=== PATIENT | male | born 1970 | race Caucasian/White ===

== ENCOUNTER → 2017-10-31 | Outpatient (CLI) | payer SELFPAY ==
--- NOTE | 2017-10-31 14:04 | Diagnostic Imaging Report ---
PROCEDURE: CT abdomen without contrast. TECHNIQUE: Multiple contiguous axial images were obtained through the abdomen without the use of intravenous contrast. INDICATION: Hepatitis. There are no previous CT examinations available for comparison. FINDINGS: The gallbladder ultrasound exam performed on 09/29/15 was limited as the left lobe of the liver, the common bile duct and pancreas were not well visualized. There did appear to be an ill-defined 9.4 cm lobulated somewhat irregular hypoechoic area in the posterior aspect of the right lobe of the liver. The possibility that this was related to normal parenchyma spared from fatty metamorphosis was raised. On this exam, the liver seems homogeneous and not enlarged. There is no focal mass identified. The liver seems of normal density and there is no clear evidence for fatty metamorphosis. As noted on the ultrasound exam, there is cholelithiasis but there is no sign of acute cholecystitis. The common bile duct and proximal biliary tree are not dilated. The spleen, pancreas, adrenals, kidneys, aorta and inferior vena cava show no sign of an acute abnormality. The stomach is partially filled with fluid and consequently difficult to assess. The lung bases are clear. The osseous structures are intact. IMPRESSION: 1. There is no discrete mass involving the right lobe of the liver to correspond to finding of the ultrasound exam. If clinical concern regarding an underlying abnormality persists and if further imaging is desired, then either a followup CT exam with intravenous contrast or MRI would be recommended. 2. There is cholelithiasis without evidence for acute cholecystitis. Dictated by: Dictated on workstation # [id number]
== END ==
LOC: RAD 11:04
PROVIDERS: ATTEND Pediatrics
DX: B18.1 Chronic viral hepatitis B without delta-agent (principal); K80.20 Calculus of gallbladder without cholecystitis without obstruction
CPT/HCPCS: 74150

== ENCOUNTER 2021-01-30 21:56 | Inpatient (IN) | payer OTHER ==
[~2021-01-30] VITALS: Ht 170 cm; Wt 100.3 kg
[2021-01-30] MEDS ORDERED: ASPIRIN 81 MG CHEW (CHILDREN'S ASA) ONE (22:17)
[2021-01-30] MEDS ORDERED: NITROGLYCERIN 0.4 MG SL TABS BTL 25'S SL ONE (22:18)
[2021-01-30] MEDS ORDERED: morphine INJ 10 MG/ML 1ML (SYR OR VIAL) IVP STA (22:20)
[2021-01-30 22:26] LABS: BASOPHILS # (AUTO) 0.1 10^3/uL (0.0-0.1); BASOPHILS % (AUTO) 0 % (0-10); EOSINOPHILS # (AUTO) 0.3 10^3/uL (0.0-0.3); EOSINOPHILS % (AUTO) 2 % (0-10); HEMATOCRIT 46 % (40-54); LYMPHOCYTES # (AUTO) 3.3 10^3/uL (1.0-4.0); LYMPHOCYTES % (AUTO) 20 % (12-44); MEAN CORPUSCULAR HEMOGLOBIN 30 pg (25-34); MEAN CORPUSCULAR HGB CONC 33 g/dL (32-36); MEAN CORPUSCULAR VOLUME 91 fL (80-99); MONOCYTES # (AUTO) 0.8 10^3/uL (0.0-1.0); MONOCYTES % (AUTO) 5 % (0-12); NEUTROPHILS # (AUTO) 12.1 10^3/uL (1.8-7.8); NEUTROPHILS % (AUTO) 73 % (42-75); PLATELET COUNT 329 10^3/uL (130-400); WHITE BLOOD COUNT 16.6 10^3/uL (4.3-11.0)
[2021-01-30] MEDS ORDERED: LACTATED RINGERS 1,000 ML IV ONE (22:30)
[2021-01-30 22:31] LABS: INR 1.1 (0.8-1.4); PROTHROMBIN TIME PATIENT 14.3 SEC (12.2-14.7)
[2021-01-30 22:38] LABS: ALANINE AMINOTRANSFERASE 24 U/L (0-55); ALBUMIN 3.5 GM/DL (3.2-4.5); ALKALINE PHOSPHATASE 112 U/L (40-136); BILIRUBIN,DIRECT 0.2 MG/DL (0.0-0.3); BILIRUBIN,INDIRECT 0.2 MG/DL; BILIRUBIN,TOTAL 0.4 MG/DL (0.1-1.0); PHOSPHORUS 2.9 MG/DL (2.3-4.7); TOTAL PROTEIN 7.3 GM/DL (6.4-8.2)
[2021-01-30 22:41] LABS: ALBUMIN 3.6 GM/DL (3.2-4.5); BILIRUBIN,TOTAL 0.4 MG/DL (0.1-1.0); CALCIUM 9.4 MG/DL (8.5-10.1); CREATININE SERUM 1.97 MG/DL (0.60-1.30); MAGNESIUM 1.9 MG/DL (1.6-2.4); TOTAL PROTEIN 7.4 GM/DL (6.4-8.2)
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
[2021-01-30] MEDS ORDERED: HEParin 1000 UNIT/ML (10ML VIAL) FOR BOLUS ONE (22:55)
[2021-01-30] MEDS ORDERED: CLOPIDOGREL 300 MG (PLAVIX) TABLET PO ONE ×2 (22:55→23:00)
[2021-01-30] MEDS ORDERED: fentaNYL INJ 100 MCG/2 ML AMP ONE (22:58)
[2021-01-30] MEDS ORDERED: HEParin (CATH LAB) 2,000 ML IV ONE (22:59)
[2021-01-30] MEDS ORDERED: LIDOCAINE 1% INJ 20 ML 20 ML VIAL ONE (22:59)
[2021-01-30] MEDS ORDERED: NS IV 1000 ML 1,000 ML ONE (22:59)
[2021-01-30] MEDS ORDERED: MIDAZOLAM 5 MG/5 ML (VERSED) VIAL ONE (22:59)
[2021-01-30] MEDS ORDERED: NITRO DRIP 25000 MCG/D5W 250 ML IV ONE (23:01)
[2021-01-30] MEDS ORDERED: NS 100 ML (IVPB) BAG IV ONE (23:15)
[2021-01-30] MEDS ORDERED: IOHEXOL 350 MG/ML 100 ML (OMNIPAQUE 350) VIAL IV ONE (23:15)
[2021-01-30] MEDS ORDERED: HOLD METFORMIN - RECEIVED CONTRAST 20 ML VIAL IV SCH (23:15)
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
--- NOTE | 2021-01-31 00:03 | Conscious Sedation/ASA ---
Conscious Sedation Pre-Proced Time 00:03 ASA Score 3 For ASA 3 and 4: Consider anesthesia and medical clearance. Also, for patients with a history of failed moderate sedation consider anesthesia. Airway Lungs Heart ASA score ASA 1: a normal healthy patient ASA 2: a patient with a mild systemic disease (mid diabetes, controlled hypertension, obesity x ASA 3: a patient with a severe systemic disease that limits activity (angina, COPD, prior Myocardial infarction) ASA 4: a patient with an incapacitating disease that is a constant threat to life (CHF, renal failure) ASA 5: a moribund patient not expected to survive 24 hrs. (ruptured aneurysm) ASA 6: a declared brain- patient whose organs are being harvested. For emergent operations, add the letter E after the classification Mallampati Classification Grade 3 Sedation Plan Analgesia, Amnesia, Plan communicated to team members, Discussed options with patient/fam, Discussed risks with patient/fam The patient is an appropriate candidate to undergo the planned procedure, sedation, and anesthesia. The patient immediately re-assessed prior to indication. YUDITH MCKNIGHT MD Jan 31, 2021 00:03
[2021-01-31] MEDS ORDERED: PATIENT MAY USE OWN MEDS, ALL PO SCH (00:15)
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
--- NOTE | 2021-01-31 00:48 | Tele-ICU Progress Note ---
Focused Exam Height, Weight, BMI Height: '" Weight: lbs. oz. kg; 28.00 BMI Method: BARTOLO MCFARLANE MD Jan 31, 2021 00:48
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
--- NOTE | 2021-01-31 06:34 | Diagnostic Imaging Report ---
INDICATION: Pain. 3 views were obtained FINDINGS: There is a transverse fracture through the medial malleolus. There is an oblique fracture through the distal fibular diaphysis. Talar domes intact. Posterior malleolus is intact. IMPRESSION: Medial malleolar fracture and distal fibular diaphyseal fracture as described. Dictated by: Dictated on workstation # [id number]
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
[2021-01-31] MEDS ORDERED: fentaNYL INJ 100 MCG/2 ML AMP ONE (07:55)
--- NOTE | 2021-01-31 07:57 | Diagnostic Imaging Report ---
INDICATION: Pain. FINDINGS: Examination of the pelvis in the supine projection fails to reveal evidence of fracture, dislocation or other osseous abnormality. IMPRESSION: Negative pelvis. Dictated by: Dictated on workstation # [id number]
[2021-01-31] MEDS: fentaNYL INJ 100 MCG/2 ML AMP IVP PRN ×3 (08:00→17:14)
[2021-01-31] MEDS: PANTOPRAZOLE 40 MG (PROTONIX) TAB PO SCH (08:17)
[2021-01-31] MEDS: LOSARTAN 25 MG (COZAAR) TAB PO SCH (08:17)
[2021-01-31] MEDS: ASPIRIN E.C. 81 MG (ECOTRIN) TAB PO SCH (08:17)
[2021-01-31] MEDS: CLOPIDOGREL 75 MG (PLAVIX) TABLET PO SCH (08:18)
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
[2021-01-31] MEDS: NS IV 1000 ML 1,000 ML IV SCH ×2 (10:15→19:40)
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
[2021-01-31 13:05] LABS: TRIGLYCERIDES 85 MG/DL (<150); VLDL CHOLESTEROL 17 MG/DL (5-40)
[2021-01-31 13:10] LABS: CHOLESTEROL 133 MG/DL (< 200)
[2021-01-31 13:11] LABS: HDL CHOLESTEROL 22 MG/DL (40-60)
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
[2021-01-31] MEDS ORDERED: LISI-729 PO (19:28)
[2021-01-31] MEDS ORDERED: CLOP75TA28 PO (19:28)
[2021-01-31] MEDS ORDERED: CARV3.122 PO (19:28)
[2021-01-31] MEDS ORDERED: LORazepam INJ 2 MG/ML (ATIVAN) VIAL IM/IV PRN (19:30)
[2021-01-31] MEDS ORDERED: LORazepam INJ 2 MG/ML (ATIVAN) VIAL IV PRN (19:30)
[2021-01-31] MEDS ORDERED: LORazepam 1 MG (ATIVAN) TAB PO PRN (19:30)
[2021-01-31] MEDS ORDERED: D5 1/2 NS 1000 ML IV SOLUTION 1,000 ML IV PRN (19:30)
[2021-01-31] MEDS ORDERED: 1/2 NS IV SOLUTION 1,000 ML IV PRN (19:30)
[2021-02-01] MEDS: NS IV 1000 ML 1,000 ML IV SCH (03:41)
[2021-02-01] MEDS: fentaNYL INJ 100 MCG/2 ML AMP IVP PRN ×3 (05:29→14:50)
[2021-02-01 06:18] LABS: HEMOGLOBIN 14.8 g/dL (13.3-17.7); MEAN PLATELET VOLUME 10.3 fL (9.0-12.2); WHITE BLOOD COUNT 11.5 10^3/uL (4.3-11.0)
[2021-02-01 06:19] LABS: CHLORIDE 101 MMOL/L (98-107); POTASSIUM 4.2 MMOL/L (3.6-5.0); SODIUM 133 MMOL/L (135-145)
[2021-02-01 06:20] LABS: CALCIUM 8.9 MG/DL (8.5-10.1)
[2021-02-01 06:21] LABS: GLUCOSE 139 MG/DL (70-105); TRIGLYCERIDES 83 MG/DL (<150); VLDL CHOLESTEROL 17 MG/DL (5-40)
[2021-02-01 06:22] LABS: CARBON DIOXIDE 22 MMOL/L (21-32)
[2021-02-01 06:24] LABS: CREATININE SERUM 1.07 MG/DL (0.60-1.30); GFR ESTIMATED > 60
[2021-02-01 06:26] LABS: BUN/CREATININE RATIO 14; CHOLESTEROL 141 MG/DL (< 200)
[2021-02-01 06:27] LABS: HDL CHOLESTEROL 27 MG/DL (40-60)
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
[2021-02-01] MEDS: PANTOPRAZOLE 40 MG (PROTONIX) TAB PO SCH (08:23)
[2021-02-01] MEDS: ASPIRIN E.C. 81 MG (ECOTRIN) TAB PO SCH (08:23)
[2021-02-01] MEDS: CLOPIDOGREL 75 MG (PLAVIX) TABLET PO SCH (08:23)
[2021-02-01] MEDS: LOSARTAN 25 MG (COZAAR) TAB PO SCH (08:23)
[2021-02-01] MEDS ORDERED: SULF1TAB35 PO (08:57)
[2021-02-01] MEDS ORDERED: ASPI-1238 PO (08:57)
--- NOTE | 2021-02-01 09:51 | Progress Note - Ortho ---
Progress Note Subjective Date of Exam 02/01/21 Chief Complaint Left ankle fracture HPI/Events since last exam Mr. Gutiérrez continues with pain although his ankle pain and shoulder and elbow pain is improved. Review of Systems No changes Allergies: Coded Allergies: No Known Drug Allergies (Unverified , 01/30/21) Home Meds Reported Medications Aspirin (Aspirin EC) 81 Mg Tablet.dr, 81 MG PO DAILY, TAB 02/01/21 Sulfamethoxazole/Trimethoprim (Bactrim Ds Tablet) 1 Each Tablet, 1 EA PO BID, TAB FILLED 01-28-2021 #14/7 DAY SUPPLY 02/01/21 Lisinopril (Lisinopril) 5 Mg Tablet, 5 MG PO DAILY, TAB LAST FILLED 12-08-2020 #30/ DAY SUPPLY 01/31/21 Clopidogrel Bisulfate (Clopidogrel) 75 Mg Tablet, 75 MG PO DAILY, TAB LAST FILLED 12-08-2020 #38/30 DAY SUPPLY 01/31/21 Carvedilol (Carvedilol) 3.125 Mg Tablet, 3.125 MG PO BID, TAB LAST FILLED 12-08-2020 #60/30 DAY SUPPLY 01/31/21 Objective Exam Constitutional: [] HEENT: [] Neck: [] Cardiovascular: [] Respiratory: [] Gastrointestinal: [] Genitourinary: [] Skin: [] Back/Spine: [] Extremities: [Good motion of both shoulders with minimal pain. Good motion of the right elbow with minimal pain. Bruising and swelling continues. Good motion of the toes with normal sensation and good capillary refill left foot and ankle. Splint is intact] Neurologic: [] Psychiatric: [] Hematologic/lymphatic/immunologic: [] Vital Signs Vital Signs Date Time Temp Pulse Resp B/P (MAP) Pulse Ox O2 Delivery O2 Flow Rate FiO2 02/01/21 07:45 35.8 02/01/21 06:54 75 02/01/21 06:00 75 121/83 (96) 94 Room Air 02/01/21 05:26 82 115/96 (102) 100 Room Air 02/01/21 04:54 36.2 02/01/21 04:00 84 122/88 (103) 96 Room Air 02/01/21 03:08 95 Room Air 02/01/21 03:00 79 143/94 (115) 96 Room Air 02/01/21 02:00 80 127/76 (90) 95 Room Air 02/01/21 01:00 84 123/91 (102) 94 Room Air 02/01/21 01:00 84 02/01/21 00:00 82 133/86 (102) 94 Room Air 01/31/21 23:06 36.8 01/31/21 23:04 95 Room Air 01/31/21 23:00 75 143/86 (107) 96 Room Air 01/31/21 22:00 83 123/93 (106) 94 Room Air 01/31/21 21:00 80 145/92 (118) 96 Room Air 01/31/21 20:00 89 108/77 (90) 94 Room Air 01/31/21 19:57 95 Room Air 01/31/21 19:42 35.8 01/31/21 19:00 95 110/74 (86) 94 Room Air 01/31/21 19:00 95 01/31/21 18:00 76 112/85 (94) 96 Room Air 01/31/21 17:00 84 132/93 (106) 96 Room Air 01/31/21 16:00 36.9 01/31/21 16:00 95 Room Air 01/31/21 16:00 76 129/87 (101) 98 Room Air 01/31/21 15:00 68 127/99 (108) 98 Room Air 01/31/21 14:00 70 118/83 (95) 98 Room Air 01/31/21 13:00 74 120/68 (85) 97 Room Air 01/31/21 12:41 72 01/31/21 12:00 71 116/90 (99) 96 Room Air 01/31/21 12:00 95 Room Air 01/31/21 11:58 36.3 01/31/21 11:00 78 118/84 (95) 98 Room Air 01/31/21 10:00 70 118/84 (95) 96 Room Air I & O0 02/01/21 07:00 Intake Total 1250 ml Output Total 2725 ml Balance -1475 ml Lab Results Laboratory Tests 02/01/21 05:15: White Blood Count 11.5H, Red Blood Count 4.93, Hemoglobin 14.8, Hematocrit 44, Mean Corpuscular Volume 90, Mean Corpuscular Hemoglobin 30, Mean Corpuscular Hemoglobin Concent 33, Red Cell Distribution Width 12.4, Platelet Count 273, Mean Platelet Volume 10.3, Percent Immature Platelet Fraction 3.5, Sodium Level 133L, Potassium Level 4.2, Chloride Level 101, Carbon Dioxide Level 22, Anion Gap 10, Blood Urea Nitrogen 15, Creatinine 1.07, Estimat Glomerular Filtration Rate > 60, BUN/Creatinine Ratio 14, Glucose Level 139H, Calcium Level 8.9, Troponin I 20.161*H, Triglycerides Level 83, Cholesterol Level 141, LDL Cholesterol Direct 111, VLDL Cholesterol 17, HDL Cholesterol 27L Assessment and Plan Assessment Decrease pain. Problem List Unchanged Plan Again I talked to Mr. Gutiérrez about surgical treatment of the ankle. We also talked about nonsurgical treatment. Again he is at increased risk due to his cardiac disease. He is concerned about the risk but wants to proceed with surgical fixation as he knows he will have a better ankle with surgical treatment versus nonsurgical treatment due to the displacement of the medial malleolus. He may also have a syndesmosis injury as well.Again I talked to him about the surgical procedure risk complications and he would like to proceed. We have him scheduled for tomorrow at approximately noon. N.p.o. after midnight. He has no allergies and will cover him with Anc pre and postop. Final Diagonsis Fracture left ankle Level of the visit: Level 3 DAYDAY KEITA MD Feb 01, 2021 09:51
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
[2021-02-02] MEDS: fentaNYL INJ 100 MCG/2 ML AMP IVP PRN ×2 (01:50→07:54)
[2021-02-02 06:46] LABS: BASOPHILS # (AUTO) 0.1 10^3/uL (0.0-0.1); BASOPHILS % (AUTO) 0 % (0-10); EOSINOPHILS # (AUTO) 0.2 10^3/uL (0.0-0.3); EOSINOPHILS % (AUTO) 2 % (0-10); HEMATOCRIT 46 % (40-54); HEMOGLOBIN 15.2 g/dL (13.3-17.7); LYMPHOCYTES # (AUTO) 2.5 10^3/uL (1.0-4.0); LYMPHOCYTES % (AUTO) 17 % (12-44); MEAN CORPUSCULAR HEMOGLOBIN 30 pg (25-34); MEAN CORPUSCULAR HGB CONC 33 g/dL (32-36); MEAN CORPUSCULAR VOLUME 90 fL (80-99); MEAN PLATELET VOLUME 10.1 fL (9.0-12.2); MONOCYTES # (AUTO) 1.3 10^3/uL (0.0-1.0); MONOCYTES % (AUTO) 9 % (0-12); NEUTROPHILS # (AUTO) 10.3 10^3/uL (1.8-7.8); NEUTROPHILS % (AUTO) 71 % (42-75); PLATELET COUNT 325 10^3/uL (130-400); WHITE BLOOD COUNT 14.4 10^3/uL (4.3-11.0)
[2021-02-02 06:59] LABS: ALBUMIN 3.4 GM/DL (3.2-4.5); CHLORIDE 101 MMOL/L (98-107); POTASSIUM 4.1 MMOL/L (3.6-5.0); SODIUM 133 MMOL/L (135-145)
[2021-02-02 07:00] LABS: CALCIUM 9.5 MG/DL (8.5-10.1)
[2021-02-02 07:01] LABS: GLUCOSE 140 MG/DL (70-105); TOTAL PROTEIN 7.6 GM/DL (6.4-8.2)
[2021-02-02 07:02] LABS: CARBON DIOXIDE 24 MMOL/L (21-32)
[2021-02-02 07:03] LABS: BILIRUBIN,TOTAL 0.9 MG/DL (0.1-1.0)
[2021-02-02 07:05] LABS: ALKALINE PHOSPHATASE 95 U/L (40-136); CREATININE SERUM 0.97 MG/DL (0.60-1.30); GFR ESTIMATED > 60
[2021-02-02 07:06] LABS: BUN/CREATININE RATIO 18
[2021-02-02 07:08] LABS: ALANINE AMINOTRANSFERASE 29 U/L (0-55)
[2021-02-02 07:58] LABS: EOSINOPHILS % (MANUAL) 1 %; LYMPHOCYTES % (MANUAL) 20 %; MONOCYTES % (MANUAL) 16 %; NEUTROPHILS % (MANUAL) 58 %; RBC MORPH NORMAL; REACTIVE LYMPHOCYTES 5 %
--- NOTE | 2021-02-02 08:46 | Progress Note - Ortho ---
Progress Note Subjective Date of Exam 02/02/21 Chief Complaint Left ankle fracture HPI/Events since last exam Patient for surgery today. He is n.p.o. and has had no issues. No questions or concerns Review of Systems Unchanged Allergies: Coded Allergies: No Known Drug Allergies (Unverified , 01/30/21) Home Meds Reported Medications Aspirin (Aspirin EC) 81 Mg Tablet.dr, 81 MG PO DAILY, TAB 02/01/21 Sulfamethoxazole/Trimethoprim (Bactrim Ds Tablet) 1 Each Tablet, 1 EA PO BID, TAB FILLED 01-28-2021 #14/7 DAY SUPPLY 02/01/21 Lisinopril (Lisinopril) 5 Mg Tablet, 5 MG PO DAILY, TAB LAST FILLED 12-08-2020 #30/ DAY SUPPLY 01/31/21 Clopidogrel Bisulfate (Clopidogrel) 75 Mg Tablet, 75 MG PO DAILY, TAB LAST FILLED 12-08-2020 #38/30 DAY SUPPLY 01/31/21 Carvedilol (Carvedilol) 3.125 Mg Tablet, 3.125 MG PO BID, TAB LAST FILLED 12-08-2020 #60/30 DAY SUPPLY 01/31/21 Objective Exam Constitutional: [] HEENT: [] Neck: [] Cardiovascular: [] Respiratory: [] Gastrointestinal: [] Genitourinary: [] Skin: [] Back/Spine: [] Extremities: [Splint is intact. He can move his toes and has normal sensation.] Neurologic: [] Psychiatric: [] Hematologic/lymphatic/immunologic: [] Vital Signs Vital Signs Date Time Temp Pulse Resp B/P (MAP) Pulse Ox O2 Delivery O2 Flow Rate FiO2 02/02/21 07:00 85 02/02/21 03:31 36.8 80 18 114/64 (81) 94 Room Air 02/02/21 01:00 77 02/02/21 00:16 36.2 79 18 111/76 (88) 93 Room Air 02/01/21 20:40 Room Air 02/01/21 20:00 37.0 81 24 117/75 (89) 92 Room Air 02/01/21 19:00 87 02/01/21 16:00 35.9 84 119/61 (80) 92 Room Air 02/01/21 14:57 37.2 80 110/74 (86) 93 Room Air 02/01/21 14:00 73 113/81 (92) 94 Room Air 02/01/21 13:10 73 02/01/21 13:00 72 117/75 (89) 93 Room Air 02/01/21 12:00 72 111/87 (95) 94 Room Air 02/01/21 11:35 35.6 02/01/21 11:00 72 115/78 (90) 93 Room Air 02/01/21 10:00 64 131/76 (94) 95 Room Air 02/01/21 09:00 84 106/78 (87) 94 Room Air I & O 02/02/21 07:00 Intake Total 2170 ml Output Total 3625 ml Balance -1455 ml Lab Results Laboratory Tests 02/02/21 06:20: White Blood Count 14.4H, Red Blood Count 5.05, Hemoglobin 15.2, Hematocrit 46, Mean Corpuscular Volume 90, Mean Corpuscular Hemoglobin 30, Mean Corpuscular Hemoglobin Concent 33, Red Cell Distribution Width 12.3, Platelet Count 325, Mean Platelet Volume 10.1, Immature Granulocyte % (Auto) 1, Neutrophils (%) (Auto) 71, Lymphocytes (%) (Auto) 17, Monocytes (%) (Auto) 9, Eosinophils (%) (Auto) 2, Basophils (%) (Auto) 0, Neutrophils # (Auto) 10.3H, Lymphocytes # (Auto) 2.5, Monocytes # (Auto) 1.3H, Eosinophils # (Auto) 0.2, Basophils # (Auto) 0.1, Immature Granulocyte # (Auto) 0.2H, Neutrophils % (Manual) 58, Lymphocytes % (Manual) 20, Monocytes % (Manual) 16, Eosinophils % (Manual) 1, Reactive Lymphocytes 5, Blood Morphology Comment NORMAL, Sodium Level 133L, Potassium Level 4.1, Chloride Level 101, Carbon Dioxide Level 24, Anion Gap 8, Blood Urea Nitrogen 17, Creatinine 0.97, Estimat Glomerular Filtration Rate > 60, BUN/Creatinine Ratio 18, Glucose Level 140H, Calcium Level 9.5, Corrected Calcium 10.0, Total Bilirubin 0.9, Aspartate Amino Transf (AST/SGOT) 59H, Alanine Aminotransferase (ALT/SGPT) 29, Alkaline Phosphatase 95, Total Protein 7.6, Albumin 3.4 Assessment and Plan Assessment For surgery today Problem List Unchanged Plan Surgery left ankleAt approximately noon today Final Diagonsis Fracture left ankle Level of the visit: Level 3 DAYDAY KEITA MD Feb 02, 2021 08:46
[2021-02-02] MEDS: CLOPIDOGREL 75 MG (PLAVIX) TABLET PO SCH (09:00)
[2021-02-02] MEDS: LOSARTAN 25 MG (COZAAR) TAB PO SCH (09:00)
[2021-02-02] MEDS: PANTOPRAZOLE 40 MG (PROTONIX) TAB PO SCH (09:00)
[2021-02-02] MEDS: ASPIRIN E.C. 81 MG (ECOTRIN) TAB PO SCH (09:00)
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
[2021-02-02] MEDS ORDERED: ONDANSETRON 4 MG/2 ML (SDV) Z0FRAN ONE (12:09)
[2021-02-02] MEDS ORDERED: SEVOFLURANE (ULTANE) 15 ML INHAL SOLN ONE ×2 (12:09→14:00)
[2021-02-02] MEDS ORDERED: LIDOCAINE PF 2% 5 ML (XYLOCAINE) VIAL ONE (12:09)
[2021-02-02] MEDS ORDERED: ROCURONIUM 10 MG/ML 5 ML SYRINGE IV ONE (12:09)
[2021-02-02] MEDS ORDERED: proPOfol 200 MG/20 ML (DIPRIVAN) VIAL IV ONE (12:09)
[2021-02-02] MEDS ORDERED: MIDAZOLAM 2 MG/2 ML (VERSED) VIAL ONE (12:10)
[2021-02-02] MEDS ORDERED: fentaNYL INJ 100 MCG/2 ML AMP ONE (12:10)
[2021-02-02] MEDS ORDERED: LACTATED RINGERS 1,000 ML IV PRN (13:00)
[2021-02-02] MEDS ORDERED: ceFAZolin 2 GM IV Premixed 50 ML IV ONE (13:00)
[2021-02-02] MEDS ORDERED: HYDROmorphone 2 MG/ML VIAL (DILAUDID) ONE (13:13)
[2021-02-02] MEDS ORDERED: PHENYLEPHRINE 100 MCG/ML 10 ML (ANESTHESIA) SYR ONE (13:20)
[2021-02-02] MEDS ORDERED: ESMOLOL 100 MG/10 ML (BREVIBLOC) VIAL ONE (13:25)
[2021-02-02] MEDS: NEO/POLY/BAC (NEOSPORIN) OINT 15 GM TUBE TOP SCH (13:41)
[2021-02-02] MEDS ORDERED: BUPIVACAINE 0.25% 30 ML (SENSORCAINE) VIAL INJ ONE (13:45)
[2021-02-02] MEDS ORDERED: LIDOCAINE/EPI 1%-1:100,000 (XYLOCAINE) 20ML INJ ONE (13:45)
[2021-02-02 13:48] VITALS: BP 84/50
[2021-02-02 13:58] VITALS: BP 99/68
[2021-02-02] MEDS ORDERED: ONDANSETRON 4 MG/2 ML (SDV) Z0FRAN IVP PRN (14:00)
[2021-02-02] MEDS ORDERED: HYDROmorphone 2 MG/ML VIAL (DILAUDID) IV ONE (14:00)
[2021-02-02] MEDS ORDERED: morphine INJ 10 MG/ML 1ML (SYR OR VIAL) IVP ONE (14:00)
[2021-02-02 14:08] VITALS: BP 108/72
[2021-02-02] MEDS ORDERED: fentaNYL INJ 100 MCG/2 ML AMP IVP PRN (14:15)
[2021-02-02] MEDS ORDERED: HYDROcodone/APAP 5 MG/325 MG (LORTAB) TAB PO PRN (14:15)
--- NOTE | 2021-02-02 14:16 | Operative Report - Ortho ---
Operative Report Surgeon (s)/Cable Splicer Apprentice (s) Surgeon DAYDAY KEITA MD Cable Splicer Apprentice n/a Pre-Operative Diagnosis Bimalleolar fracture left ankle Post-Operative Diagnosis same Operative Report Date of Procedure: Feb 02, 2021 Name of Procedure Performed: Percutaneous screw fixation medial malleolar fracture left ankle Description & Findings The patient was taken from the preoperative area to the OR. I did see the patient in the morning in his hospital room and the procedure risk complications were discussed. The patient would like to proceed with surgery. He had no questions or concerns. He was placed on the OR table and after administration of general anesthesia a tourniquet was placed on the left thigh. His splint was removed. He had a superficial abrasion just above the medial malleolus that started bleeding little bit due to the padding sticking to the wound. Otherwise all wounds were healing well without redness or drainage.He was given 2 g Of Ancef IV prior to the OR procedure. The left foot and lower leg were prepped and draped in usual sterile manner. The leg was exsanguinated with an Esmarch and the tourniquet was elevated to 250 mmHg.Images used to visualize a ankle. The fibula fracture which was about 2-1/2 cm above the ankle joint remained nondisplaced. There is no widening of the mortise of the syndesmosis. The medial malleolar fracture was reduced with minimal a deduction. It was felt that this could be percutaneously fixed with cancellous screws. At this point guidewires were placed through the tip of the medial malleolus into the distal tibia anterior a nd posterior. Images used verify the position. Again the fracture was reduced in good position of the pins were noted. Ileana incisions were made around the guidepins and these were overdrilled. Initially 230 mm 4.0 mm partially- threaded cancellous screws were inserted but these were too short so these were replaced with 40 mm screws. These were cannulated screws. Good purchase was noted. After fixation of the medial malleolar fracture the ankle was stressed initially with abduction and external rotation and no widening of the syndesmosis was noted. Also the fibula was stressed grabbing the fibula with a towel clip and under fluoroscopy there was no widening of the syndesmosis with lateral pull on the distal fibula. This point it was felt that the distal fibula fracture did not need fixation and there was no instability of the syndesmosis. At this point permanent x-rays were obtained which again showed the medial malleolar fracture anatomic and good position of the 2 screws. The ileana incisions were closed with daljit. The wound and neck incisions were dressed with antibiotic ointment, Adaptic and 4 x 4's then the lower leg and foot were wrapped with webril. The tourniquet was deflated after 21 minutes Anteroir posterior and sugar tong splints were applied which were wrapped with an Russel wrap. After the splint hardened the patient was transferred to his hospital bed and to recovery room in good condition, he tolerated the procedure well. Blood loss none Replacement none Complications none [id number] minutes at 250 mmHg n/a Anesthesia Type General Estimated Blood Loss None Packing none. Specimen(s) collected/removed None DAYDAY KEITA MD Feb 02, 2021 14:16
[2021-02-02 14:18] VITALS: BP 108/70
[2021-02-02 14:28] VITALS: BP 102/56
[2021-02-02 14:38] VITALS: BP 107/69
--- NOTE | 2021-02-02 14:42 | Anesthesia-General Post-Op ---
General Patient Condition Mental Status/LOC: Same as Preop Cardiovascular: Satisfactory Nausea/Vomiting: Absent Respiratory: Satisfactory Pain: Controlled Complications: Absent Post Op Complications Complications None Follow Up Care/Instructions Patient Instructions None needed. Anesthesia/Patient Condition Patient Condition Patient is doing well, no complaints, stable vital signs, no apparent adverse anesthesia problems. LUCY HERNANDEZ DO Feb 02, 2021 14:42
--- NOTE | 2021-02-02 14:56 | Physical Therapy Progress Note ---
Therapy Progress Note Orders for PT eval received. Patient is currently in surgery. Will start in the morning. OMAR RAMIRES PT Feb 02, 2021 14:56
--- NOTE | 2021-02-02 17:24 | Diagnostic Imaging Report ---
INDICATION: Left ankle fracture Intraoperative fluoroscopy views are obtained during ORIF of medial malleolar fracture of the distal tibia. [address] with anatomic alignment of fracture fragments. A total of 3 images were obtained. 41.3 seconds of fluoroscopy time was used in surgery. IMPRESSION: Anatomic alignment status post ORIF of medial malleolar fracture of distal tibia. Distal fibular fracture is in good alignment. Dictated by: Dictated on workstation # [id number]
[2021-02-02] MEDS: ceFAZolin 2 GM IV Premixed 50 ML IV SCH (20:33)
[2021-02-03] MEDS: ceFAZolin 2 GM IV Premixed 50 ML IV SCH (05:34)
[2021-02-03 05:57] LABS: BASOPHILS % (AUTO) 0 % (0-10); EOSINOPHILS % (AUTO) 0 % (0-10); HEMATOCRIT 47 % (40-54); HEMOGLOBIN 15.2 g/dL (13.3-17.7); LYMPHOCYTES # (AUTO) 1.7 10^3/uL (1.0-4.0); LYMPHOCYTES % (AUTO) 9 % (12-44); MEAN CORPUSCULAR HEMOGLOBIN 30 pg (25-34); MEAN CORPUSCULAR HGB CONC 32 g/dL (32-36); MEAN CORPUSCULAR VOLUME 92 fL (80-99); MEAN PLATELET VOLUME 10.5 fL (9.0-12.2); MONOCYTES # (AUTO) 0.9 10^3/uL (0.0-1.0); MONOCYTES % (AUTO) 5 % (0-12); NEUTROPHILS # (AUTO) 16.2 10^3/uL (1.8-7.8); NEUTROPHILS % (AUTO) 85 % (42-75); PLATELET COUNT 355 10^3/uL (130-400)
[2021-02-03 06:01] LABS: ALBUMIN 3.6 GM/DL (3.2-4.5); CHLORIDE 101 MMOL/L (98-107); POTASSIUM 4.7 MMOL/L (3.6-5.0); SODIUM 136 MMOL/L (135-145)
[2021-02-03 06:03] LABS: CALCIUM 9.9 MG/DL (8.5-10.1)
[2021-02-03 06:04] LABS: GLUCOSE 230 MG/DL (70-105); TOTAL PROTEIN 8.3 GM/DL (6.4-8.2)
[2021-02-03 06:05] LABS: CARBON DIOXIDE 20 MMOL/L (21-32)
[2021-02-03 06:06] LABS: BILIRUBIN,TOTAL 0.6 MG/DL (0.1-1.0)
[2021-02-03 06:07] LABS: ALKALINE PHOSPHATASE 113 U/L (40-136); CREATININE SERUM 1.13 MG/DL (0.60-1.30); GFR ESTIMATED > 60
[2021-02-03 06:08] LABS: BUN/CREATININE RATIO 19
[2021-02-03 06:10] LABS: ALANINE AMINOTRANSFERASE 27 U/L (0-55)
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
[2021-02-03] MEDS: PANTOPRAZOLE 40 MG (PROTONIX) TAB PO SCH (08:58)
[2021-02-03] MEDS: CLOPIDOGREL 75 MG (PLAVIX) TABLET PO SCH (08:58)
[2021-02-03] MEDS: ASPIRIN E.C. 81 MG (ECOTRIN) TAB PO SCH (08:58)
[2021-02-03] MEDS: LOSARTAN 25 MG (COZAAR) TAB PO SCH (08:58)
[2021-02-03] MEDS: NEO/POLY/BAC (NEOSPORIN) OINT 15 GM TUBE TOP SCH (09:19)
--- NOTE | 2021-02-03 09:48 | Progress Note - Ortho ---
Progress Note Subjective Date of Exam 02/03/21 Chief Complaint POD#1 Percutaneous screw fixation medial malleolar fracture left ankle HPI/Events since last exam Mr. Gutiérrez is 1 day postop. He states he is doing very well with minimal pain. He has been up with therapy ambulating with a walker nonweightbearing on the left. He states he is ready to go home. Cardiology feels that he could be discharged today as well.No other complaints. Review of Systems Reviewed and no additions or changes Allergies: Coded Allergies: No Known Drug Allergies (Unverified , 01/30/21) Home Meds Reported Medications Aspirin (Aspirin EC) 81 Mg Tablet.dr, 81 MG PO DAILY, TAB 02/01/21 Sulfamethoxazole/Trimethoprim (Bactrim Ds Tablet) 1 Each Tablet, 1 EA PO BID, TAB FILLED 01-28-2021 #14/7 DAY SUPPLY 02/01/21 Lisinopril (Lisinopril) 5 Mg Tablet, 5 MG PO DAILY, TAB LAST FILLED 12-08-2020 #30/30 DAY SUPPLY 01/31/21 Clopidogrel Bisulfate (Clopidogrel) 75 Mg Tablet, 75 MG PO DAILY, TAB LAST FILLED 12-08-2020 #38/30 DAY SUPPLY 01/31/21 Carvedilol (Carvedilol) 3.125 Mg Tablet, 3.125 MG PO BID, TAB LAST FILLED 12-08-2020 #60/30 DAY SUPPLY 01/31/21 Objective Exam Constitutional: [] HEENT: [] Neck: [] Cardiovascular: [] Respiratory: [] Gastrointestinal: [] Genitourinary: [] Skin: [] Back/Spine: [] Extremities: [Splint is intact. He can move his toes and has normal sensation with good cap refill. No pain with range of motion of the toes.] Neurologic: [] Psychiatric: [] Hematologic/lymphatic/immunologic: [] Vital Signs Vital Signs Date Time Temp Pulse Resp B/P (MAP) Pulse Ox O2 Delivery O2 Flow Rate FiO2 02/03/21 08:30 36.6 102 20 123/76 (92) 96 Room Air 02/03/21 04:07 36.0 72 18 114/76 (89) 92 Nasal Cannula 2.00 02/03/21 01:00 73 02/03/21 00:30 36.5 75 20 120/79 (93) 93 Nasal Cannula 2.00 02/02/21 21:12 Nasal Cannula 2.00 02/02/21 20:35 Room Air 02/02/21 19:36 36.2 83 20 105/65 (78) 93 Nasal Cannula 2.00 02/02/21 19:00 91 02/02/21 16:00 35.8 90 20 110/60 (77) 94 Nasal Cannula 2.00 02/02/21 14:45 Nasal Cannula 2 02/02/21 14:38 36.1 11 107/69 (82) 92 Nasal Cannula 2 02/02/21 14:31 Room Air 02/02/21 14:28 16 102/56 (71) 97 OxyMask 10 02/02/21 14:18 14 108/70 (83) 97 OxyMask 10 02/02/21 14:08 OxyMask 10 02/02/21 14:08 12 108/72 (84) 96 OxyMask 10 02/02/21 13:58 12 99/68 (78) 97 OxyMask 10 02/02/21 13:48 OxyMask 10 02/02/21 13:48 36.9 16 84/50 (61) 95 OxyMask 10 02/02/21 12:40 36.0 84 20 111/71 (84) 93 Room Air l I & O 02/03/21 07:00 Intake Total 1040 ml Output Total 3200 ml Balance -2160 ml Lab Results Laboratory Tests 02/03/21 05:01: White Blood Count 19.0H, Red Blood Count 5.16, Hemoglobin 15.2, Hematocrit 47, Mean Corpuscular Volume 92, Mean Corpuscular Hemoglobin 30, Mean Corpuscular Hemoglobin Concent 32, Red Cell Distribution Width 12.2, Platelet Count 355, Mean Platelet Volume 10.5, Immature Granulocyte % (Auto) 1, Neutrophils (%) (Auto) 85H, Lymphocytes (%) (Auto) 9L, Monocytes (%) (Auto) 5, Eosinophils (%) (Auto) 0, Basophils (%) (Auto) 0, Neutrophils # (Auto) 16.2H, Lymphocytes # (Auto) 1.7, Monocytes # (Auto) 0.9, Eosinophils # (Auto) 0.0, Basophils # (Auto) 0.0, Immature Granulocyte # (Auto) 0.2H, Sodium Level 136, Potassium Level 4.7, Chloride Level 101, Carbon Dioxide Level 20L, Anion Gap 15H, Blood Urea Nitrogen 21H, Creatinine 1.13, Estimat Glomerular Filtration Rate > 60, BUN/Creatinine Ratio 19, Glucose Level 230H, Calcium Level 9.9, Corrected Calcium 10.2H, Total Bilirubin 0.6, Aspartate Amino Transf (AST/SGOT) 37H, Alanine Aminotransferase (ALT/SGPT) 27, Alkaline Phosphatase 113, Total Protein 8.3H, Albumin 3.6 Assessment and Plan Assessment Doing well 1 day postop Problem List Unchanged Plan Patient can be discharged from an orthopedic point of view. Follow-up appoin tment next Wednesday 02/07 for splint removal, dressing change and application of a cast. Continue with walker ambulation nonweightbearing on the left. Elevation and ice as needed. Final Diagonsis Fracture left anklemedial malleolus displaced, distal fibula nondisplaced Level of the visit: Level 3 DAYDAY KEITA MD Feb 03, 2021 09:47
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
[2021-02-03] MEDS ORDERED: MTP25TSR PO (12:02)
[2021-02-03] MEDS ORDERED: ATOR80TA76 PO (12:02)
[2021-02-03] MEDS ORDERED: LOSA25TA41 PO (12:02)
[2021-02-03] MEDS ORDERED: ACHYD1T PO (12:02)
--- NOTE | 2021-02-03 12:07 | Discharge Summary ---
Discharge [facility] Reconcile Patient Problems Problems Reviewed?: Yes Discharge Medications New, Converted or Re-Newed RX: Transmitted to Pharmacy New Medications: Atorvastatin Calcium (Atorvastatin Calcium) 80 Mg Tablet 80 MG PO HS, #30 TAB Hydrocodone Bit/Acetaminophen (HYDROcodone/APAP 10/325 TABLET) 1 Ea Tab 1 EA PO Q6H PRN for PAIN-MODERATE (5-7), #25 TAB Losartan Potassium (Losartan Potassium) 25 Mg Tablet 25 MG PO DAILY, #30 TAB Metoprolol Succinate (Metoprolol Succinate) 25 Mg Tab.er.24h 25 MG PO DAILY, #30 TAB Continued Medications: Aspirin (Aspirin EC) 81 Mg Tablet.dr 81 MG PO DAILY, TAB Clopidogrel Bisulfate (Clopidogrel) 75 Mg Tablet 75 MG PO DAILY, TAB LAST FILLED 12-08-2020 #38/30 DAY SUPPLY Discontinued Medications: Carvedilol (Carvedilol) 3.125 Mg Tablet 3.125 MG PO BID, TAB LAST FILLED 12-08-2020 #60/30 DAY SUPPLY Lisinopril (Lisinopril) 5 Mg Tablet 5 MG PO DAILY, TAB LAST FILLED 12-08-2020 #30/30 DAY SUPPLY Sulfamethoxazole/Trimethoprim (Bactrim Ds Tablet) 1 Each Tablet 1 EA PO BID, TAB FILLED 01-28-2021 #14/7 DAY SUPPLY Patient Instructions Goal/Follow Up Appt: F/u with PCP in 1-2 week - Make sure to keep your appt with cardiology Activity & Diet Discharge Diet: Cardiac Diet Activity as Tolerated: Yes NAHEED LOPEZ MD Feb 03, 2021 12:07
[2021-02-03 13:29] VITALS: BP 104/65
== END 2021-02-03 13:32 | disposition home or self-care (01) | DRG 246 ==
LOC: EDUNIT# 21:56 → ER 21:59 → SDC 23:11 → ICU 01-31 00:04 → 4TH 02-01 14:52
PROVIDERS: ADMIT Family Medicine; ATTEND Family Medicine
PROC: 027034Z Dilation of Coronary Artery, One Artery with Drug-eluting Intraluminal Device, Percutaneous Approach (ICD-10-PCS; principal; 2021-01-30)
PROC: 4A023N7 Measurement of Cardiac Sampling and Pressure, Left Heart, Percutaneous Approach (ICD-10-PCS; 2021-01-30)
PROC: B2111ZZ Fluoroscopy of Multiple Coronary Arteries using Low Osmolar Contrast (ICD-10-PCS; 2021-01-30)
PROC: 0QSH34Z Reposition Left Tibia with Internal Fixation Device, Percutaneous Approach (ICD-10-PCS; 2021-02-02)
DX: T82.897A Other specified complication of cardiac prosthetic devices, implants and grafts, initial encounter (principal); I21.09 ST elevation (STEMI) myocardial infarction involving other coronary artery of anterior wall; S22.41XA Multiple fractures of ribs, right side, initial encounter for closed fracture; S36.892A Contusion of other intra-abdominal organs, initial encounter; N17.9 Acute kidney failure, unspecified; S82.842A Displaced bimalleolar fracture of left lower leg, initial encounter for closed fracture; K08.119 Complete loss of teeth due to trauma, unspecified class; S80.811A Abrasion, right lower leg, initial encounter; S60.511A Abrasion of right hand, initial encounter; S50.311A Abrasion of right elbow, initial encounter; I25.10 Atherosclerotic heart disease of native coronary artery without angina pectoris; I25.2 Old myocardial infarction; I10 Essential (primary) hypertension; E78.5 Hyperlipidemia, unspecified; Z91.14 Patient's other noncompliance with medication regimen; F17.210 Nicotine dependence, cigarettes, uncomplicated; Z86.19 Personal history of other infectious and parasitic diseases; Z79.01 Long term (current) use of anticoagulants; Z79.82 Long term (current) use of aspirin; Z79.899 Other long term (current) drug therapy; V13.4XXA Pedal cycle driver injured in collision with car, pick-up truck or van in traffic accident, initial encounter
CPT/HCPCS: 36415; 70450; 71045; 71260; 72125; 72170; 73610; 74177; 76000; 80048; 80053; 80061; 80076; 80320; 82248; 82550; 83735; 83874; 84100; 84484; 85007; 85025; 85027; 85384; 85610; 85730; 86850; 86900; 86901; 93005; 93041; 93306; 93458; 99291

== ENCOUNTER → 2021-02-07 | Outpatient (CLI) | payer OTHER ==
[~2021-02-07] MED LIST: ACHYD1T PO; ASPI-1238 PO; ATOR80TA76 PO; CARV3.122 PO; CLOP75TA28 PO; LISI-729 PO; LOSA25TA41 PO; MTP25TSR PO; SULF1TAB38 PO
== END ==
LOC: ORTHO 09:15
PROVIDERS: ATTEND Orthopaedic Surgery
DX: S82.52XD Displaced fracture of medial malleolus of left tibia, subsequent encounter for closed fracture with routine healing (principal); S82.402D Unspecified fracture of shaft of left fibula, subsequent encounter for closed fracture with routine healing; X58.XXXD Exposure to other specified factors, subsequent encounter
CPT/HCPCS: 29405

== ENCOUNTER → 2021-02-16 | Outpatient (CLI) | payer SELFPAY ==
--- NOTE | 2021-02-16 10:57 | Diagnostic Imaging Report ---
Indication: Fracture, postop. Findings: Partially-threaded cannulated screws transfix the medial malleolus in good alignment, only portions of the fracture lines medially are visualized. There were improvements in alignment. Nondisplaced distal fibular shaft fracture present. No widening of the mortise. The plafond and talar dome intact. Impression: Medial malleolar fracture is in anatomic alignment postop and nondisplaced distal fibular shaft fracture present, no widening of the mortise. Dictated by: Dictated on workstation # [id number]
== END ==
LOC: ORTHO 09:55
PROVIDERS: ATTEND Orthopaedic Surgery
DX: S82.52XD Displaced fracture of medial malleolus of left tibia, subsequent encounter for closed fracture with routine healing (principal); Z98.890 Other specified postprocedural states; X58.XXXD Exposure to other specified factors, subsequent encounter
CPT/HCPCS: 73610

== ENCOUNTER → 2021-03-02 | Outpatient (CLI) | payer MEDICAID ==
--- NOTE | 2021-03-02 10:18 | Diagnostic Imaging Report ---
INDICATION: Followup ankle fracture. TIME OF EXAM: 10:05 AM. COMPARISON: 02/16/2021. FINDINGS: Three views of the left ankle were obtained. There are two partially threaded screws transfixing the transversely oriented fracture of the medial malleolus. The fracture line remains clearly visible. The alignment is anatomic. There is a non-fixated supra syndesmotic transversely oriented fracture of the distal fibula. No displacement or angulation is seen. The alignment is anatomic. The ankle mortise is well maintained. The talar dome is smooth. IMPRESSION: Distal fibular and medial malleolar fractures, similar in appearance when compared to the exam from 02/16/2021. The fracture lines remain clearly visible. No significant callus formation is identified. Alignment is anatomic. Dictated by: Dictated on workstation # [id number]
== END ==
LOC: ORTHO 09:44
PROVIDERS: ATTEND Orthopaedic Surgery
DX: S82.52XD Displaced fracture of medial malleolus of left tibia, subsequent encounter for closed fracture with routine healing (principal); X58.XXXD Exposure to other specified factors, subsequent encounter
CPT/HCPCS: 73610

== ENCOUNTER → 2021-03-16 | Outpatient (CLI) | payer MEDICAID ==
--- NOTE | 2021-03-16 09:52 | Diagnostic Imaging Report ---
INDICATION: Followup of left ankle fracture. COMPARISON: 03/02/2021. FINDINGS: Two cannulated bone screws are present holding the medial malleolus in good position. The fracture line is still apparent without significant callus formation. There is some early callus formation developing along the distal fibular shaft fracture with good overall alignment. IMPRESSION: Medial malleolar fracture and fibular fracture in good alignment with very early callus formation noted. Dictated by: Dictated on workstation # [id number]
== END ==
LOC: ORTHO 09:07
PROVIDERS: ATTEND Orthopaedic Surgery
DX: S82.52XD Displaced fracture of medial malleolus of left tibia, subsequent encounter for closed fracture with routine healing (principal); X58.XXXD Exposure to other specified factors, subsequent encounter
CPT/HCPCS: 73610

== ENCOUNTER → 2021-03-30 | Outpatient (CLI) | payer MEDICAID ==
--- NOTE | 2021-03-30 10:50 | Diagnostic Imaging Report ---
INDICATION: Left ankle fracture recheck COMPARISON: 03/16/2021 FINDINGS: 3 views left ankle demonstrate callus formation of the distal fibula, diaphysis fracture with stable alignment. Stable cannulated screws are seen across the medial malleolus fracture. There is some slight widening of the fracture site compared to the prior exam. Ankle mortise remains intact. IMPRESSION: Slight widening of the medial malleolus fracture. Follow-up recommended. Callus formation distal diaphysis fracture of the fibula. Dictated by: Dictated on workstation # [id number]
== END ==
LOC: ORTHO 09:56
PROVIDERS: ATTEND Orthopaedic Surgery
DX: S82.52XD Displaced fracture of medial malleolus of left tibia, subsequent encounter for closed fracture with routine healing (principal); X58.XXXD Exposure to other specified factors, subsequent encounter
CPT/HCPCS: 73610

== ENCOUNTER → 2021-04-20 | Outpatient (CLI) | payer MEDICAID ==
--- NOTE | 2021-04-20 11:19 | Diagnostic Imaging Report ---
Indication: Follow-up of distal fibular shaft and medial malleolar fracture. Comparison with 03/30/2021 left ankle. FINDINGS: 2 cortical cannulated bone screws are present transfixing medial malleolus in good alignment. There has been some bony reabsorption along the fracture line consistent with early healing. No evidence of hardware loosening or fracture. The distal fibular shaft fracture remains in good alignment and does show moderate amount of bony bridging callus now present. Talus shows smooth articulating surface. IMPRESSION: ORIF of medial malleolus remaining in good position. There is some bony bridging callus now present along the distal fibular fracture. Dictated by: Dictated on workstation # [id number]
== END ==
LOC: ORTHO 10:52
PROVIDERS: ATTEND Orthopaedic Surgery
DX: S82.52XD Displaced fracture of medial malleolus of left tibia, subsequent encounter for closed fracture with routine healing (principal); S82.832D Other fracture of upper and lower end of left fibula, subsequent encounter for closed fracture with routine healing; X58.XXXD Exposure to other specified factors, subsequent encounter
CPT/HCPCS: 73610

== ENCOUNTER 2021-05-11 18:15 | Emergency (ER) | payer SELFPAY ==
[~2021-05-11] VITALS: Ht 167.7 cm; Wt 99.8 kg
[2021-05-11] MEDS ORDERED: NITROGLYCERIN 2% OINT 1 GM UNIT DOSE PACKET TOP STA (18:27)
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
--- NOTE | 2021-05-11 18:40 | Diagnostic Imaging Report ---
INDICATION: Chest pain. COMPARISON: Prior examination from 01/30/2021. FINDINGS: The heart size, mediastinal configuration, and pulmonary vascularity are within normal limits. There is no pleural effusion, pneumothorax, or pneumonia. The osseous structures are unremarkable. IMPRESSION: No acute cardiopulmonary abnormality. Dictated by: Dictated on workstation # [id number]
[2021-05-11] MEDS ORDERED: CATHETER FLUSH 10 ML SYR IV PRN (18:45)
[2021-05-11] MEDS ORDERED: NS 100 ML (IVPB) BAG IV ONE (18:45)
[2021-05-11] MEDS ORDERED: HOLD METFORMIN - RECEIVED CONTRAST 20 ML VIAL IV SCH (18:45)
[2021-05-11] MEDS ORDERED: IOHEXOL 350 MG/ML 150 ML (OMNIPAQUE 350) VIAL IV ONE (18:45)
[2021-05-11 18:58] LABS: EOSINOPHILS % (AUTO) 3 % (0-10); HEMATOCRIT 49 % (40-54); HEMOGLOBIN 16.9 g/dL (13.3-17.7); LYMPHOCYTES % (AUTO) 36 % (12-44); MEAN CORPUSCULAR HEMOGLOBIN 30 pg (25-34); MEAN CORPUSCULAR HGB CONC 34 g/dL (32-36); MEAN CORPUSCULAR VOLUME 89 fL (80-99); MEAN PLATELET VOLUME 10.4 fL (9.0-12.2); MONOCYTES % (AUTO) 8 % (0-12); NEUTROPHILS % (AUTO) 53 % (42-75); PLATELET COUNT 279 10^3/uL (130-400); WHITE BLOOD COUNT 13.9 10^3/uL (4.3-11.0)
[2021-05-11 18:59] LABS: BASOPHILS # (AUTO) 0.1 10^3/uL (0.0-0.1); BASOPHILS % (AUTO) 0 % (0-10); EOSINOPHILS # (AUTO) 0.4 10^3/uL (0.0-0.3); MONOCYTES # (AUTO) 1.1 X 10^3 (0.0-1.0); NEUTROPHILS # (AUTO) 7.3 X 10^3 (1.8-7.8)
[2021-05-11 19:03] LABS: ATYPICAL LYMPHOCYTES 20 %; BAND NEUTROPHILS 1 %; BASOPHILS % (MANUAL) 1 %; EOSINOPHILS % (MANUAL) 2 %; LYMPHOCYTES % (MANUAL) 15 %; MONOCYTES % (MANUAL) 5 %; NEUTROPHILS % (MANUAL) 56 %
[2021-05-11 19:04] LABS: PLATELET ESTIMATE NORMAL; PROTHROMBIN TIME PATIENT 13.2 SEC (12.2-14.7); RBC MORPH NORMAL
[2021-05-11 19:07] LABS: ALKALINE PHOSPHATASE 244 U/L (40-136); BILIRUBIN,TOTAL 0.5 MG/DL (0.1-1.0); BUN/CREATININE RATIO 25; CALCIUM 9.4 MG/DL (8.5-10.1); CARBON DIOXIDE 24 MMOL/L (21-32); CHLORIDE 100 MMOL/L (98-107); CREATININE SERUM 0.95 MG/DL (0.60-1.30); GFR ESTIMATED 85; GLUCOSE 169 MG/DL (70-105); POTASSIUM 4.2 MMOL/L (3.6-5.0); SODIUM 136 MMOL/L (135-145)
[2021-05-11 19:08] LABS: ALANINE AMINOTRANSFERASE 35 U/L (0-55); ALBUMIN 4.4 GM/DL (3.2-4.5); TOTAL PROTEIN 7.9 GM/DL (6.4-8.2)
[2021-05-11] MEDS ORDERED: ASPIRIN 81 MG CHEW (CHILDREN'S ASA) PO STA (19:23)
--- NOTE | 2021-05-11 19:31 | Diagnostic Imaging Report ---
PROCEDURE: CT angiography of the abdomen and chest with and without contrast. TECHNIQUE: After intravenous administration of contrast, thin section axial CT angiography of the abdomen and chest were obtained. 3D MIP reformats were provided. Auto Exposure Controls were utilized during the CT exam to meet ALARA standards for radiation dose reduction. INDICATION: Chest pain with right neck and arm numbness. FINDINGS: There are no discrete pulmonary nodules, masses or infiltrates. There is no pleural or pericardial fluid. There is no pneumothorax. The heart size is normal. The thoracic aorta is normal in caliber without evidence of dissection. There are no filling defects seen within the pulmonary arteries to suggest pulmonary embolism. There is no pathologically enlarged adenopathy in the chest. There are some coronary artery calcifications. There is cholelithiasis. Remainder of the intra-abdominal structures are unremarkable. There are mild degenerative changes in the spine IMPRESSION: 1. No evidence of pulmonary embolism or aortic dissection. 2. Coronary artery calcification. 3. Cholelithiasis. Dictated by: Dictated on workstation # [id number]
[2021-05-11 21:10] VITALS: BP 158/106
== END 2021-05-11 21:11 | disposition home or self-care (01) ==
LOC: EDUNIT# 18:15 → ER FS 18:16
DX: R07.9 Chest pain, unspecified (principal); I10 Essential (primary) hypertension; I25.2 Old myocardial infarction; I25.10 Atherosclerotic heart disease of native coronary artery without angina pectoris; Z72.0 Tobacco use; Z95.5 Presence of coronary angioplasty implant and graft; Z79.01 Long term (current) use of anticoagulants; Z79.82 Long term (current) use of aspirin; Z79.899 Other long term (current) drug therapy
CPT/HCPCS: 36415; 71045; 71275; 74175; 80053; 83880; 84484; 85007; 85027; 85610; 85730; 93005; 93041

== ENCOUNTER 2021-05-22 17:19 | Emergency (ER) | payer MEDICAID, OTHER ==
[~2021-05-22] VITALS: Ht 167.7 cm; Wt 104.6 kg
[2021-05-22] MEDS ORDERED: HYDROcodone/APAP 5 MG/325 MG (LORTAB) TAB PO ONE (17:30)
--- NOTE | 2021-05-22 17:54 | Diagnostic Imaging Report ---
INDICATION Left shoulder injury in January. Persistent shoulder pain. COMPARISON: Correlation made with a chest radiograph from 05/11/2021. FINDINGS: There are arthritic changes at the acromioclavicular joint with small AC joint spurs. There is some subchondral sclerosis within the greater tuberosity of the humerus. There are no findings of an acute fracture. There is no glenohumeral joint dislocation or AC joint separation. The visualized portion of the left lung is clear. IMPRESSION: AC joint arthritic changes as well as some likely degenerative changes at the greater tuberosity of the humerus. There are no findings of an acute fracture, dislocation or malalignment. Dictated by: Dictated on workstation # [id number]
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
[2021-05-22 18:25] VITALS: BP 148/93
== END 2021-05-22 18:25 | disposition home or self-care (01) ==
LOC: EDUNIT# 17:19 → ER FS 17:21
DX: M25.512 Pain in left shoulder (principal); I25.2 Old myocardial infarction; I10 Essential (primary) hypertension; I25.10 Atherosclerotic heart disease of native coronary artery without angina pectoris; Z72.0 Tobacco use; Z79.82 Long term (current) use of aspirin; Z79.899 Other long term (current) drug therapy; Z79.01 Long term (current) use of anticoagulants
CPT/HCPCS: 73030

== ENCOUNTER → 2021-07-05 | Outpatient (CLI) | payer OTHER ==
[~2021-07-05] MED LIST changes: -LISI-729 PO; +LISI5TAB20 PO
--- NOTE | 2021-07-05 09:44 | Diagnostic Imaging Report ---
Indication: Bilateral ankle pain. Left ankle fracture follow-up 2 views of each ankle were obtained. Comparison is made with a prior left ankle study dated 04/20/2021. On the left there is a healing fracture of the distal fibular shaft with exuberant callus formation. Healing is incomplete. There is satisfactory alignment which is stable compared to 04/20/2021 study. There are compression screws extending through the medial malleolar fracture with stable alignment. Healing is incomplete. On the right there are changes of prior surgery involving the medial malleolus and distal tibia anteriorly. There is advanced degenerative changes of the ankle joint with narrowing and spurring. No acute abnormality is seen on the right. IMPRESSION: Fibular fracture on the left has shown some progression of healing since the prior study. There is stable alignment. Healing is incomplete. On the right there are advanced degenerative changes present with no acute abnormality seen. Dictated by: Dictated on workstation # [id number]
== END ==
LOC: RAD 09:01
PROVIDERS: ATTEND Family Medicine
DX: Z02.71 Encounter for disability determination (principal); S82.892D Other fracture of left lower leg, subsequent encounter for closed fracture with routine healing; M19.071 Primary osteoarthritis, right ankle and foot; X58.XXXD Exposure to other specified factors, subsequent encounter

== ENCOUNTER 2022-04-17 13:57 | Observation (INO) | payer OTHER, MEDICAID ==
[~2022-04-17] VITALS: Ht 167.7 cm; Wt 104.3 kg
[2022-04-17] MEDS ORDERED: LACTATED RINGERS 1,000 ML IV ONE ×2 (14:15→15:00)
[2022-04-17] MEDS ORDERED: BENZTROPINE 2 MG/2 ML INJ (COGENTIN) AMP IM ONE (14:15)
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
[2022-04-17 14:24] LABS: HEMATOCRIT 49 % (40-54); HEMOGLOBIN 16.4 g/dL (13.3-17.7); MEAN CORPUSCULAR HEMOGLOBIN 30 pg (25-34); MEAN CORPUSCULAR HGB CONC 34 g/dL (32-36); MEAN CORPUSCULAR VOLUME 89 fL (80-99); MEAN PLATELET VOLUME 10.6 fL (9.0-12.2); PLATELET COUNT 276 10^3/uL (130-400); WHITE BLOOD COUNT 12.6 10^3/uL (4.3-11.0)
[2022-04-17 14:29] LABS: ALBUMIN 3.8 GM/DL (3.2-4.5); CHLORIDE 105 MMOL/L (98-107); POTASSIUM 3.6 MMOL/L (3.6-5.0); SODIUM 140 MMOL/L (135-145)
[2022-04-17 14:30] LABS: CALCIUM 9.2 MG/DL (8.5-10.1)
[2022-04-17 14:31] LABS: GLUCOSE 178 MG/DL (70-105)
[2022-04-17 14:32] LABS: CARBON DIOXIDE 19 MMOL/L (21-32)
[2022-04-17 14:33] LABS: BILIRUBIN,TOTAL 0.6 MG/DL (0.1-1.0)
[2022-04-17 14:35] LABS: ALKALINE PHOSPHATASE 121 U/L (40-136); CREATININE SERUM 1.22 MG/DL (0.60-1.30); GFR ESTIMATED 73
[2022-04-17 14:36] LABS: BILIRUBIN,DIRECT 0.2 MG/DL (0.0-0.3); BILIRUBIN,INDIRECT 0.4 MG/DL; BUN/CREATININE RATIO 16
[2022-04-17 14:38] LABS: ALANINE AMINOTRANSFERASE 26 U/L (0-55); CREATINE KINASE 222 U/L (30-200)
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
[2022-04-17] MEDS ORDERED: CATHETER FLUSH 10 ML SYR IV PRN (15:15)
[2022-04-17] MEDS ORDERED: IOHEXOL 350 MG/ML 100 ML (OMNIPAQUE 350) VIAL IV ONE (15:15)
[2022-04-17] MEDS ORDERED: NS 100 ML (IVPB) BAG IV ONE (15:15)
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
[2022-04-17] MEDS ORDERED: HYDROcodone/APAP 5 MG/325 MG (LORTAB) TAB PO ONE (17:00)
[2022-04-17] MEDS ORDERED: HYDROcodone/APAP 5 MG/325 MG (LORTAB) TAB ONE (17:01)
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
[2022-04-17] MEDS ORDERED: IBUPROFEN 800 MG (MOTRIN) TAB PO PRN (18:15)
[2022-04-17] MEDS ORDERED: METHOCARBAMOL 750 MG (ROBAXIN) TAB PO PRN (18:15)
[2022-04-17] MEDS ORDERED: fentaNYL INJ 100 MCG/2 ML AMP IV PRN (18:15)
[2022-04-17 18:18] VITALS: BP 137/82
[2022-04-17] MEDS ORDERED: RT-ALBUTEROL/IPRATROPIUM 3 ML (DUONEB) VIAL INH PRN (18:30)
[2022-04-17] MEDS: LACTATED RINGERS 1,000 ML IV SCH ×2 (18:32→19:55)
[2022-04-17] MEDS: RT-ALBUTEROL/IPRATROPIUM 3 ML (DUONEB) VIAL INH SCH (20:45)
[2022-04-17 21:00] VITALS: BP 142/90
[2022-04-17] MEDS ORDERED: MELATONIN 3 MG TABLET PO PRN (21:30)
[2022-04-17 22:33] VITALS: BP 140/85
[2022-04-18] VITALS (7 sets, daily range): BP systolic 116–137; BP diastolic 74–90
[2022-04-18] MEDS: LACTATED RINGERS 1,000 ML IV SCH ×2 (02:42→09:03)
[2022-04-18] MEDS: HYDROcodone/APAP 5 MG/325 MG (LORTAB) TAB PO PRN ×3 (02:42→18:07)
[2022-04-18 05:53] LABS: BASOPHILS # (AUTO) 0.1 10^3/uL (0.0-0.1); BASOPHILS % (AUTO) 1 % (0-10); EOSINOPHILS # (AUTO) 0.2 10^3/uL (0.0-0.3); EOSINOPHILS % (AUTO) 2 % (0-10); HEMATOCRIT 48 % (40-54); LYMPHOCYTES # (AUTO) 2.9 10^3/uL (1.0-4.0); LYMPHOCYTES % (AUTO) 29 % (12-44); MEAN CORPUSCULAR HEMOGLOBIN 30 pg (25-34); MEAN CORPUSCULAR HGB CONC 33 g/dL (32-36); MEAN CORPUSCULAR VOLUME 90 fL (80-99); MEAN PLATELET VOLUME 10.5 fL (9.0-12.2); MONOCYTES % (AUTO) 10 % (0-12); NEUTROPHILS # (AUTO) 5.6 10^3/uL (1.8-7.8); NEUTROPHILS % (AUTO) 57 % (42-75); PLATELET COUNT 229 10^3/uL (130-400); WHITE BLOOD COUNT 9.7 10^3/uL (4.3-11.0)
[2022-04-18 06:18] LABS: ALBUMIN 3.3 GM/DL (3.2-4.5); BILIRUBIN,TOTAL 1.2 MG/DL (0.1-1.0); CALCIUM 8.9 MG/DL (8.5-10.1); CREATININE SERUM 0.93 MG/DL (0.60-1.30); POTASSIUM 3.8 MMOL/L (3.6-5.0); TOTAL PROTEIN 6.2 GM/DL (6.4-8.2)
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
[2022-04-18] MEDS: RT-ALBUTEROL/IPRATROPIUM 3 ML (DUONEB) VIAL INH SCH ×2 (07:47→19:21)
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
[2022-04-18] MEDS ORDERED: ATOR80TA76 PO (10:57)
[2022-04-18] MEDS ORDERED: LOSA25TA41 PO (10:57)
[2022-04-18] MEDS ORDERED: METF-397 PO (10:57)
[2022-04-18] MEDS ORDERED: MTP25TSR PO (10:57)
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
--- NOTE | 2022-04-18 13:53 | Occ Therapy Progress Note ---
Therapy Progress Note OT orders received and chart reviewed. Pt reports he is at his PLOF with ADLs, and took a shower this morning, independently, and able to eat and toilet independently. No concerns reported with dressing or ADLs at this time. No skilled OT services indicated at this time, as pt is at baseline. 1, visit d/c 1130 JONI SRIVASTAVA OT Apr 18, 2022 13:53
[2022-04-18] MEDS ORDERED: LOSARTAN 25 MG (COZAAR) TAB PO SCH (22:30)
[2022-04-19] MEDS: HYDROcodone/APAP 5 MG/325 MG (LORTAB) TAB PO PRN ×2 (00:21→09:15)
[2022-04-19 04:00] VITALS: BP 140/78
[2022-04-19 05:46] LABS: BASOPHILS % (AUTO) 0 % (0-10); EOSINOPHILS # (AUTO) 0.2 10^3/uL (0.0-0.3); EOSINOPHILS % (AUTO) 2 % (0-10); HEMATOCRIT 49 % (40-54); HEMOGLOBIN 16.2 g/dL (13.3-17.7); LYMPHOCYTES # (AUTO) 2.2 10^3/uL (1.0-4.0); LYMPHOCYTES % (AUTO) 20 % (12-44); MEAN CORPUSCULAR HEMOGLOBIN 30 pg (25-34); MEAN CORPUSCULAR HGB CONC 33 g/dL (32-36); MEAN CORPUSCULAR VOLUME 90 fL (80-99); MEAN PLATELET VOLUME 10.4 fL (9.0-12.2); MONOCYTES # (AUTO) 0.8 10^3/uL (0.0-1.0); MONOCYTES % (AUTO) 7 % (0-12); NEUTROPHILS % (AUTO) 71 % (42-75); PLATELET COUNT 269 10^3/uL (130-400); WHITE BLOOD COUNT 11.3 10^3/uL (4.3-11.0)
[2022-04-19 05:59] LABS: ALBUMIN 3.3 GM/DL (3.2-4.5); POTASSIUM 3.9 MMOL/L (3.6-5.0)
[2022-04-19 06:00] LABS: CALCIUM 8.7 MG/DL (8.5-10.1)
[2022-04-19] MEDS ORDERED: inSUlin ASPART (NovoLOG) 1 UNIT/0.01 ML (CHARGE PER UNIT) SC SCH (06:00)
[2022-04-19 06:01] LABS: TOTAL PROTEIN 6.4 GM/DL (6.4-8.2)
[2022-04-19 06:03] LABS: BILIRUBIN,TOTAL 0.8 MG/DL (0.1-1.0)
[2022-04-19 06:05] LABS: CREATININE SERUM 0.91 MG/DL (0.60-1.30)
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
[2022-04-19] MEDS: RT-ALBUTEROL/IPRATROPIUM 3 ML (DUONEB) VIAL INH SCH (07:51)
[2022-04-19 07:58] VITALS: BP 120/75
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
[2022-04-19] MEDS ORDERED: METH-732 PO (09:14)
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
[2022-04-19 11:55] VITALS: BP 120/75
[2022-04-19] MEDS ORDERED: ASPIRIN E.C. 81 MG (ECOTRIN) TAB PO SCH (21:00)
== END 2022-04-19 09:13 | disposition home or self-care (01) ==
LOC: EDUNIT# 13:57 → ER 14:01 → UNDOADMOB 16:50 → 4TH 16:50 → UNDODISOB 04-19 09:13
PROVIDERS: ADMIT Surgery; ATTEND Surgery
DX: S32.009A Unspecified fracture of unspecified lumbar vertebra, initial encounter for closed fracture (principal); V87.7XXA Person injured in collision between other specified motor vehicles (traffic), initial encounter; M62.82 Rhabdomyolysis; S22.20XA Unspecified fracture of sternum, initial encounter for closed fracture; F10.129 Alcohol abuse with intoxication, unspecified
CPT/HCPCS: 70450; 71045; 71046; 71275; 72125; 72128; 72131; 74175; 80048; 80053 ×2; 80076; 82550 ×2; 82947; 85025 ×2; 85027; 93005; 93041; 94640 ×3; 94664; 94760 ×2; 96361; 96375; 97161; 99284; G0480; 36415; 80320; G0378

== ENCOUNTER 2022-05-04 00:41 | Emergency (ER) | payer MEDICAID, OTHER ==
[~2022-05-04] VITALS: Ht 162.6 cm; Wt 91.0 kg
[~2022-05-04 00:41] MED LIST changes: +METF-397 PO; +METH-732 PO
[2022-05-04 01:06] VITALS: BP 126/79
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
[2022-05-04] MEDS ORDERED: IBUPROFEN 600 MG (MOTRIN) TAB PO ONE (01:15)
== END 2022-05-04 01:17 ==
LOC: EDUNIT# 00:41 → ER FS 00:45
DX: G89.29 Other chronic pain (principal); Z00.00 Encounter for general adult medical examination without abnormal findings; Z28.310 Unvaccinated for COVID-19
CPT/HCPCS: 99283

== ENCOUNTER → 2022-05-24 | Outpatient (CLI) | payer OTHER, MEDICAID ==
--- NOTE | 2022-05-24 16:17 | Diagnostic Imaging Report ---
INDICATION: Right rib pain COMPARISON: None FINDINGS: Three views of the right ribs were obtained. There is no fracture, dislocation, or other acute bony abnormality identified. Visualized portions of the right lung are clear. The surrounding soft tissues appear unremarkable. No radiopaque foreign bodies are seen. IMPRESSION: No healing or displaced right-sided rib fractures. Dictated by: Dictated on workstation # [id number]
== END ==
LOC: RAD FS 12:55
PROVIDERS: ATTEND Nurse Practitioner Family
DX: R07.81 Pleurodynia (principal)
CPT/HCPCS: 71100